=== PATIENT | female | born 1970 | race Caucasian/White ===

== ENCOUNTER 2021-04-20 06:31 | Emergency (ER) | payer BC ==
[~2021-04-20] VITALS: Ht 154.9 cm; Wt 51.0 kg
[2021-04-20] MEDS ORDERED: dexamethasone sod phosphate 10mg/ml inj IV STA (07:36)
[2021-04-20] MEDS ORDERED: piperacillin/tazo 3.375gm/50ml 50 ML IV STA (07:36)
[2021-04-20 08:56] VITALS: BP 132/88
== END 2021-04-20 09:21 | disposition home or self-care (01) ==
LOC: ER 06:32
DX: K04.7 Periapical abscess without sinus (principal); R22.0 Localized swelling, mass and lump, head; R13.10 Dysphagia, unspecified
CPT/HCPCS: 96374; 96375; 99284; J1100; J2543